=== PATIENT | male | born 1985 | race Caucasian/White ===

== ENCOUNTER 2017-05-21 04:08 | Emergency (ER) | payer MEDICAID ==
[~2017-05-21] VITALS: Ht 177.8 cm; Wt 76.0 kg
[2017-05-21] MEDS ORDERED: KETOROLAC 30 MG/1 ML ONE (04:52)
[2017-05-21] MEDS ORDERED: KETOROLAC 30 MG/1 ML IM ONE (05:00)
[2017-05-21 05:42] VITALS: BP 107/52
== END 2017-05-21 06:07 | disposition home or self-care (01) ==
LOC: ED 05:45
DX: F10.121 Alcohol abuse with intoxication delirium (principal); S39.012A Strain of muscle, fascia and tendon of lower back, initial encounter; G89.29 Other chronic pain; M54.9 Dorsalgia, unspecified; X58.XXXA Exposure to other specified factors, initial encounter; Y93.89 Activity, other specified; Y99.8 Other external cause status; Y92.480 Sidewalk as the place of occurrence of the external cause
CPT/HCPCS: 96372; 99283; J1885

== ENCOUNTER 2018-04-11 12:58 | Emergency (ER) | payer SELFPAY ==
[~2018-04-11] VITALS: Ht 177.8 cm; Wt 70.9 kg
[2018-04-11 13:00] VITALS: BP 131/85
[2018-04-11] MEDS ORDERED: THIAMINE 100MG TABLET ONE (13:17)
[2018-04-11] MEDS ORDERED: LORazepam 1MG TABLET ONE (13:18)
[2018-04-11] MEDS ORDERED: ONDANSETRON ODT 4 MG ONE (13:28)
[2018-04-11] MEDS ORDERED: LORazepam 1MG TABLET PO ONE (13:30)
[2018-04-11] MEDS ORDERED: THIAMINE 100MG TABLET PO ONE (13:30)
[2018-04-11] MEDS ORDERED: SODIUM CHLORIDE FLUSH 10ML SYR IVF ONE (13:30)
[2018-04-11] MEDS ORDERED: SODIUM CHLORIDE 0.9% 1,000ML IVBOLUS ONE (13:30)
[2018-04-11] MEDS ORDERED: ONDANSETRON ODT 4 MG PO ONE (13:30)
[2018-04-11 13:52] LABS: ALANINE AMINOTRANSFERASE 86 U/L (12-78); ALBUMIN 3.6 g/dL (3.4-5.0); ANION GAP 9 mmol/L (5-15); BASOPHILS # (AUTO) 0.02 x10^3/uL (0-0.1); BASOPHILS % (AUTO) 0 % (0-1); CALCIUM 8.6 mg/dL (8.5-10.1); CHLORIDE 107 mmol/L (98-107); CREATININE 0.71 mg/dL (0.7-1.3); EOSINOPHILS # (AUTO) 0.05 x10^3/uL (0-0.4); EOSINOPHILS % (AUTO) 1 % (1-7); LYMPHOCYTES % (AUTO) 14 % (22-44); MD NO; MEAN CORPUSCULAR HEMOGLOBIN 33.7 pg (27.5-34.5); MEAN CORPUSCULAR HGB CONC 34.6 g/dL (33.2-36.2); MEAN CORPUSCULAR VOLUME 97.5 fL (81-97); MEAN PLATELET VOLUME 8.2 fL (7.4-10.4); MONOCYTES # (AUTO) 0.49 x10^3/uL (0.2-0.8); MONOCYTES % (AUTO) 6 % (2-9); NEUTROPHILS # (AUTO) 7.02 x10^3/uL (1.8-6.8); NEUTROPHILS % (AUTO) 80 % (42-75); PLATELET COUNT 218 x10^3/uL (130-400); RED CELL DISTRIBUTION WIDTH 14.1 % (9.4-14.8)
[2018-04-11 13:54] LABS: ALKALINE PHOSPHATASE 93 U/L (45-117); TOTAL PROTEIN 6.9 g/dL (6.4-8.2)
== END 2018-04-11 16:02 | disposition left against medical advice (07) ==
LOC: ED 14:15
DX: F10.129 Alcohol abuse with intoxication, unspecified (principal); F19.10 Other psychoactive substance abuse, uncomplicated; Z79.899 Other long term (current) drug therapy
CPT/HCPCS: 36415; 80053; 80307; 83690; 85025; 99284; J7030; Q0162

== ENCOUNTER 2018-04-21 18:38 | Emergency (ER) | payer SELFPAY ==
[~2018-04-21] VITALS: Ht 177.8 cm; Wt 70.5 kg
[2018-04-21 18:47] VITALS: BP 135/82
== END 2018-04-21 19:59 | disposition home or self-care (01) ==
LOC: ED 19:55
DX: F10.220 Alcohol dependence with intoxication, uncomplicated (principal); F17.200 Nicotine dependence, unspecified, uncomplicated
CPT/HCPCS: 99283

== ENCOUNTER 2018-08-20 17:19 | Emergency (ER) | payer MEDICAID ==
[~2018-08-20] VITALS: Ht 182.9 cm; Wt 69.1 kg
[2018-08-20] MEDS ORDERED: THIAMINE 100MG TABLET PO ONE (18:00)
[2018-08-20] MEDS ORDERED: ONDANSETRON ODT 4 MG PO ONE (18:00)
[2018-08-20] MEDS ORDERED: ONDANSETRON ODT 4 MG ONE (18:15)
[2018-08-20] MEDS ORDERED: THIAMINE 100MG TABLET ONE (18:15)
[2018-08-20 18:19] LABS: BASOPHILS # (AUTO) 0.02 x10^3/uL (0-0.1); BASOPHILS % (AUTO) 0 % (0-1); EOSINOPHILS # (AUTO) 0.01 x10^3/uL (0-0.4); EOSINOPHILS % (AUTO) 0 % (1-7); LYMPHOCYTES % (AUTO) 25 % (22-44); MD NO; MEAN CORPUSCULAR HEMOGLOBIN 34.1 pg (27.5-34.5); MEAN CORPUSCULAR HGB CONC 34.3 g/dL (33.2-36.2); MEAN CORPUSCULAR VOLUME 99.5 fL (81-97); MEAN PLATELET VOLUME 8.1 fL (7.4-10.4); MONOCYTES # (AUTO) 0.46 x10^3/uL (0.2-0.8); MONOCYTES % (AUTO) 5 % (2-9); NEUTROPHILS # (AUTO) 6.15 x10^3/uL (1.8-6.8); NEUTROPHILS % (AUTO) 70 % (42-75); PLATELET COUNT 308 x10^3/uL (130-400); RED BLOOD COUNT 4.96 x10^6/uL (4.38-5.82); RED CELL DISTRIBUTION WIDTH 14.9 % (9.4-14.8)
[2018-08-20 18:26] LABS: ANION GAP 14 mmol/L (5-15); CALCIUM 8.4 mg/dL (8.5-10.1); CHLORIDE 110 mmol/L (98-107)
[2018-08-20 18:31] LABS: ALANINE AMINOTRANSFERASE 86 U/L (12-78); ALKALINE PHOSPHATASE 104 U/L (45-117); BILIRUBIN,TOTAL 0.5 mg/dL (0.2-1.0); TOTAL PROTEIN 7.8 g/dL (6.4-8.2)
[2018-08-20 20:03] VITALS: BP 139/82
== END 2018-08-20 20:05 | disposition home or self-care (01) ==
LOC: ED 19:59
DX: F10.220 Alcohol dependence with intoxication, uncomplicated (principal)
CPT/HCPCS: 36415; 80053; 80307; 85025; 99284; Q0162

== ENCOUNTER 2021-02-28 11:00 | Emergency (ER) | payer MEDICAID ==
[~2021-02-28] VITALS: Ht 177.8 cm; Wt 77.4 kg
--- NOTE | 2021-02-28 11:18 | NUR ---
PT WALKED BACK FROM TRIAGE WITH CHIEF COMPLAINT OF LEFT SHOULDER PAIN INTERMITTENT FOR 4 MONTHS HOWEVER TODAY AT WORK [employer]IFT[employer] EXPERIENCED SUDDEN STABBING PAIN. CMS INTACT.
--- NOTE | 2021-02-28 11:49 | NUR ---
PT TO IMAGING
--- NOTE | 2021-02-28 12:22 | NUR ---
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 DISCHARGE IINSTRUCTIONS REVIEWED
[2021-02-28 12:23] VITALS: BP 119/70
== END 2021-02-28 12:25 | disposition home or self-care (01) ==
LOC: ED 12:03
DX: S46.012A Strain of muscle(s) and tendon(s) of the rotator cuff of left shoulder, initial encounter (principal); X58.XXXA Exposure to other specified factors, initial encounter; Y93.89 Activity, other specified; Y92.69 Other specified industrial and construction area as the place of occurrence of the external cause; Y99.8 Other external cause status
CPT/HCPCS: 29105; 99283

== ENCOUNTER 2021-05-01 11:53 | Emergency (ER) | payer MEDICAID ==
[~2021-05-01] VITALS: Ht 177.8 cm; Wt 74.5 kg
[2021-05-01 11:56] VITALS: BP 127/71
[2021-05-01] MEDS ORDERED: LIDODERM 5% PATCH TD ONE ×2 (12:30→12:36)
[2021-05-01] MEDS ORDERED: HYDROcodone/APAP 5/325 TABLET PO ONE (12:30)
[2021-05-01] MEDS ORDERED: METHOCARBAMOL 750 MG TABLET PO ONE (12:30)
[2021-05-01] MEDS ORDERED: METHOCARBAMOL 750 MG TABLET ONE (12:36)
[2021-05-01] MEDS ORDERED: HYDROcodone/APAP 5/325 TABLET ONE (12:36)
--- NOTE | 2021-05-01 12:41 | NUR ---
MEDS ADMIN PER DEC.
--- NOTE | 2021-05-01 13:09 | NUR ---
PT STATES PAIN IS MUCH BETTER.
== END 2021-05-01 13:12 | disposition home or self-care (01) ==
LOC: ED 12:23
DX: M54.6 Pain in thoracic spine (principal); G56.01 Carpal tunnel syndrome, right upper limb; F17.210 Nicotine dependence, cigarettes, uncomplicated; Z72.9 Problem related to lifestyle, unspecified; G40.909 Epilepsy, unspecified, not intractable, without status epilepticus
CPT/HCPCS: 99284

== ENCOUNTER 2021-07-06 08:54 | Emergency (ER) | payer MEDICAID ==
[~2021-07-06] VITALS: Ht 177.8 cm; Wt 98.4 kg
[2021-07-06 09:10] VITALS: BP 127/88
--- NOTE | 2021-07-06 12:29 | NUR ---
STATISTICS PROFESSOR: CALLED NO ANSWER
--- NOTE | 2021-07-06 13:15 | NUR ---
PT CALLED NOT IN LOBBY
--- NOTE | 2021-07-06 14:10 | NUR ---
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
== END 2021-07-06 14:12 | disposition left against medical advice (07) ==
LOC: ED 14:06
DX: Z53.21 Procedure and treatment not carried out due to patient leaving prior to being seen by health care provider (principal)